=== PATIENT | female | born 1965 | race Native Hawaiian/Other Pacific Islander ===

== ENCOUNTER 2021-06-28 10:57 | Emergency (ER) | payer OTHER ==
[~2021-06-28] VITALS: Ht 167.6 cm; Wt 83.0 kg
[2021-06-28 13:35] VITALS: BP 154/79; TEMP 98.2
== END 2021-06-28 13:35 | disposition home or self-care (01) ==
LOC: ED 10:57
PROC: 2W3CX1Z Immobilization of Right Lower Arm using Splint (ICD-10-PCS; principal; 2021-06-28)
DX: M25.531 Pain in right wrist (principal); M65.88 Other synovitis and tenosynovitis, other site
CPT/HCPCS: 96372; 99283; J1885; J2930